=== PATIENT | male | born 2005 | race African-American/Black ===

== ENCOUNTER 2023-09-03 22:37 | Emergency (ER) | payer BC, SELFPAY ==
--- NOTE | 2023-09-03 22:40 | ECG_ITS ---
Measurements Intervals [place] Rate: 85 P: 51 [place]: 163 QRS: 78 QRSD: 95 T: 19 QT: 346 QTc: 414 Interpretive Statements SINUS RHYTHM ST ELEVATION IN DIFFUSE LEADS CONSISTENT WITH INJURY, PERICARDITIS, OR EARLY REPOLARIZATION ABNORMAL ECG NO PREVIOUS ECG AVAILABLE FOR COMPARISON Electronically Signed On 09-04-2023 11:47:50 DIRECTOR OF ANNUAL GIVING by Onofre Nolasco D.O.
[2023-09-03 22:49] VITALS: PULSE 92; O2SAT 100
[2023-09-03 22:55] VITALS: BP 129/93; PULSE 80; RESP 12; TEMP 36.8; O2SAT 100
[2023-09-03 22:57] VITALS: PULSE 86
[2023-09-03 23:00] VITALS: PULSE 85; RESP 16; O2SAT 100
[2023-09-03 23:01] VITALS: BP 121/87; PULSE 87; RESP 17; O2SAT 100
[2023-09-03 23:02] VITALS: RESP 18
--- NOTE | 2023-09-03 23:02 | PC.NURSE ---
Patient denies suicidal ideation.
[2023-09-03 23:36] LABS: Basophils Absolute Auto 0.1 K/mm3 (0.0-0.1); Eosinophils Percent Auto 0.2 % (0-4.4); Hematocrit 44.7 % (42.0-52.0); Hemoglobin 14.2 g/dL (14.0-18.0); Immature Granulocyte Absolute 0.01 K/mm3 (0.00-0.031); Immature Granulocyte Percent A 0.2 % (0-0.5); Lymphocytes Absolute Auto 2.09 K/mm3 (0.9-3.2); Lymphocytes Percent Auto 42.7 % (18.3-44.2); Mean Corpuscular HGB Conc 31.8 g/dl (32-36); Mean Corpuscular Hemoglobin 28.3 pg (26-34); Mean Platelet Volume 10.9 fl (7.4-10.4); Monocytes Absolute Auto 0.6 K/mm3 (0.1-0.6); Monocytes Percent Auto 12.9 % (2.6-8.5); Neutrophils Absolute Auto 2.1 K/mm3 (1.3-6.7); Platelet Count Result 248 k/mm3 (150-375); Red Blood Count 5.02 M/mm3 (4.6-6.20); Red Cell Distribution Width 12.7 % (11.5-14.5); White Blood Count 4.9 K/mm3 (4.5-10.0)
[2023-09-03 23:46] LABS: Lactic Acid Reflex 1.5 mmol/L (0.7-2.0)
[2023-09-03 23:47] LABS: Ethanol < 10 mg/dL (<10)
[2023-09-04 00:06] LABS: Alanine Aminotransferase 22 U/L (6-50); Albumin Level 4.7 g/dL (3.5-5.1); Alkaline Phosphatase 54 U/L (38-126); Anion Gap 11 mmol/L (8-16); Aspartate Amino Transferase 28 U/L (17-59); Bilirubin,Total 1.6 mg/dL (0.2-1.3); Blood Urea Nitrogen 11 mg/dL (9-20); Carbon Dioxide 29 mmol/L (22-30); Chloride 101 mmol/L (98-107); Estimated CRCL calculation 76 ml/min; Estimated Glomerular Filt Rate > 60; Glucose 108 mg/dL (65-110); Magnesium 2.1 mg/dL (1.6-2.3); Potassium 3.3 mmol/L (3.4-5.0); Sodium 141 mmol/L (137-145)
--- NOTE | 2023-09-04 00:23 | ED.GENADULT ---
HPI - General Adult General Chief complaint: Overdose Stated complaint: OVERDOSE; NARCAN ADMINISTERED BY PD Time Seen by Provider: 09/03/23 22:37 History of Present Illness HPI narrative: Patient is a 18-year-old gentleman who presents emerged department with chief complaint of possible overdose. Patient reports that he smoked some marijuana today and then was having some snoring respirations EMS and police were called the patient was given Narcan that facilitated the patient to start breathing again. Patient had nausea after receiving Narcan patient is currently alert and reports that he has no complaints at this time. Related Data Allergies Allergy/AdvReac Type Severity Reaction Status Date / Time No Known Allergies Allergy Verified 09/04/23 03:04 Review of Systems Review of Systems: A 10 system review of systems was completed on the patient and is negative except for what is stated in the HPI. Nursing and ancillary documentation was reviewed. Exam Narrative: GENERAL: Well-appearing, well-nourished, and in no acute distress. HEAD: Normocephalic, atraumatic. EYES: PERRLA and EOMI. ENT: Nares clear, no rhinorrhea or epistaxis. Mucous membranes moist. NECK: Supple. CHEST: Clear to auscultation. No respiratory distress. HEART: Regular rate and rhythm. No murmur heard. Normal peripheral pulses. ABDOMEN: Soft, nontender, nondistended, normal active bowel sounds. EXTREMITIES: Normal range of motion. No edema. SKIN: Warm, dry, no rash. NEURO: No focal deficits. Alert and oriented x3. PSYCH: Normal mood and affect. Course Vital Signs Vital signs: Vital Signs Pulse Rate 92 09/03/23 22:49 Pulse Oximetry 100 09/03/23 22:49 Temperature 36.8 C 09/03/23 22:55 Pulse Rate 93 09/04/23 02:46 Respiratory Rate 19 09/04/23 02:46 Blood Pressure 128/91 H 09/04/23 02:46 Pulse Oximetry 100 09/04/23 02:46 Oxygen Delivery Room Air 09/03/23 22:55 Medical Decision Making [facility] Narrative Medical decision making narrative: Differential diagnosis includes opiate overdose, polysubstance overdose Patient is currently awake alert oriented protecting his airway Laboratory studies were obtained normal CBC normal CMP urinalysis showed 51-100 white blood cells a UTI tox screen was positive for opiates and benzodiazepines and cannabinoids Vital Signs Vital Signs: Vital Signs Pulse Rate 92 09/03/23 22:49 Pulse Oximetry 100 09/03/23 22:49 Temperature 36.8 C 09/03/23 22:55 Pulse Rate 93 09/04/23 02:46 Respiratory Rate 19 09/04/23 02:46 Blood Pressure 128/91 H 09/04/23 02:46 Pulse Oximetry 100 09/04/23 02:46 Oxygen Delivery Room Air 09/03/23 22:55 Lab Data 09/03/23 23:30 09/03/23 23:31 Labs: Lab Results 09/03/23 09/03/23 09/04/23 Range/Units 23:30 23:31 00:36 WBC 4.9 (4.5-10.0) K/mm3 RBC 5.02 (4.6-6.20) M/mm3 Hgb 14.2 (14.0-18.0) g/dL Hct 44.7 (42.0-52.0) % MCV 89.0 (80-100) fl MCH 28.3 (26-34) pg MCHC 31.8 L (32-36) g/dl RDW 12.7 (11.5-14.5) % Plt Count 248 (150-375) k/mm3 MPV 10.9 H (7.4-10.4) fl Immature Gran % (Auto) 0.2 (0-0.5) % Neut % (Auto) 43.0 L (45.5-73.1) % Lymph % (Auto) 42.7 (18.3-44.2) % Granite % (Auto) 12.9 H (2.6-8.5) % Eos % (Auto) 0.2 (0-4.4) % Baso % (Auto) 1.0 (0.2-1.2) % Lymph # (Auto) 2.09 (0.9-3.2) K/mm3 Granite # (Auto) 0.6 (0.1-0.6) K/mm3 Eos # (Auto) 0.0 (0-0.3) K/mm3 Baso # (Auto) 0.1 (0.0-0.1) K/mm3 Abs Immat Gran (auto) 0.01 (0.00-0.031) K/mm3 Absolute Neuts (auto) 2.1 (1.3-6.7) K/mm3 Absolute Nucleated RBC 0.0 (0.0-0.012) K/mm3 Nucleated RBC % 0.0 (0.0-0.2) % Sodium 141 (137-145) mmol/L Potassium 3.3 L (3.4-5.0) mmol/L Chloride 101 (98-107) mmol/L Carbon Dioxide 29 (22-30) mmol/L Anion Gap 11 (8-16) mmol/L BUN 11 (9-20) mg/dL Creatinine 1.1
[2023-09-04 01:22] LABS: Appearance Urine Turbid (Clear); Bacteria Urine None Seen /hpf; Bilirubin Urine Negative (Negative); Blood Urine Negative (Negative); Color Urine Dark Yellow (Yellow); Glucose Urine UA Negative (Negative); Granular Casts Urine Present /lpf; Hyaline Casts Urine Present /lpf; Ketones Urine 1+ mg/dL (Negative); Leukocyte Esterase Ur 1+ LEU/UL (Negative); Mucus Urine Present /lpf; Nitrate Urine Negative (Negative); Protein Urine 1+ mg/dL (Negative); RBC Urine 0-2 /hpf (0-2); Specific Grav Ur 1.027 (1.001-1.035); Squamous Epithelial Cell Urine Occasional /hpf (Few); WBC Urine 51-100 /hpf; pH Urine 6.5 (5.0-9.0)
[2023-09-04 01:23] LABS: Add Urine Microscopic? YES
[2023-09-04 02:23] LABS: Barbiturate Screen Urine Negative (Negative); Benzodiazepines Screen Urine Positive (Negative)
[2023-09-04 02:25] LABS: Amphetamine Screen Urine Negative (Negative); Cocaine Screen Urine Negative (Negative); Methadone Screen Urine Negative (Negative); Phencyclidine Screen Urine Negative (Negative)
[2023-09-04 02:27] LABS: Cannabinoid Screen Urine Positive (Negative); Opiate Screen Urine Positive (Negative)
[2023-09-04 02:46] VITALS: BP 128/91; PULSE 93; RESP 19; O2SAT 100
[2023-09-04 03:45] VITALS: BP 104/72; RESP 16; O2SAT 98
[2023-09-04] MEDS: AZITHROMYCIN 250 MG TABLET 1000 MG PO (03:50)
[2023-09-04] MEDS: cefTRIAXone 1 GM VIAL 0.5 GM IM (03:58)
== END 2023-09-04 04:08 | disposition home or self-care (01) ==
PROVIDERS: Emergency Provider Emergency Medicine
DX: T50.901A Poisoning by unspecified drugs, medicaments and biological substances, accidental (unintentional), initial encounter (principal); N39.0 Urinary tract infection, site not specified; R94.31 Abnormal electrocardiogram [ECG] [EKG]
CPT/HCPCS: 36415; 80053; 80307; 81001; 83605; 83735; 85025; 87086; 93005; 96372; 99284; A9270; J0696

== ENCOUNTER 2024-10-02 15:26 | Emergency (ER) | payer BC, SELFPAY ==
[2024-10-02 15:45] VITALS: BP 126/75; PULSE 105; RESP 18; TEMP 36.9; O2SAT 100
== END 2024-10-02 16:04 | disposition left against medical advice (07) ==
LOC: ANHED 16:00
PROVIDERS: PCP Family Medicine
DX: R11.2 Nausea with vomiting, unspecified (principal); R19.7 Diarrhea, unspecified
CPT/HCPCS: 99199

== ENCOUNTER 2025-03-31 08:53 | Emergency (ER) | payer BC, SELFPAY ==
[2025-03-31 09:09] VITALS: BP 141/89; PULSE 102; RESP 14; TEMP 37.1; O2SAT 99
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
== END 2025-03-31 09:22 ==
PROVIDERS: Emergency Provider Emergency Medicine; PCP Family Medicine
DX: Z02.89 Encounter for other administrative examinations (principal); T40.601A Poisoning by unspecified narcotics, accidental (unintentional), initial encounter
CPT/HCPCS: 99281